=== PATIENT | male | born 1985 | race Caucasian/White ===

== ENCOUNTER → 2023-09-09 | Emergency (ER) | payer SELFPAY ==
[~2023-09-09] MED LIST: CEFTRIAXONE 1000 MG/VIAL ONE; CYCLOBENZAPRINE 10 MG TAB ONE; GUAIFENESIN/DM 5 ML UCUP ONE; KETOROLAC 30 MG/ML INJ ONE; LIDOCAINE 1% MPF 5 ML VIAL ONE; METOCLOPRAMIDE 10 MG/2mL INJ ONE; NA CHLORIDE 0.9% 1,000 ML ONE
[2023-09-09 06:25] LABS: SARS-CoV-2 Antigen Rapid Res Negative (Negative)
[2023-09-09 06:43] LABS: Absolute Lymphocytes (CBC) 1.5 K/uL (0.7-4.9); Hematocrit 43.9 % (39.6-49.0); Lymphocytes % 22.4 % (15.3-44.8); MCV 80.1 fL (80-100); MPV 7.4 fL (7.6-11.3); Platelets 280 thou/uL (152-406); RBC Red Blood Cell Count 5.48 M/uL (4.33-5.43)
[2023-09-09 06:54] LABS: Potassium 3.9 mEq/L (3.5-5.1)
--- NOTE | 2023-09-09 07:14 | EDPHYS ---
Physician Documentation [facility] Name: Woody Mejia Age: 37 yrs Sex: Male : 1985 Arrival Date: 09/09/2023 Time: 05:31 Bed 6 Private MD: ED Physician Chandan Alcantara HPI: 09/09 05:56 This 37 yrs old Male presents to ER via Ambulatory with complaints of Flu sp4 Symptoms. 07:50 Patient presents with 4 days of cough , congestion, pleuritic right lateral chest wall sp4 pain, also there is painful cough. . Historical: - Allergies: 05:50 No Known Allergies; vc1 - Home Meds: 05:50 None [Active]; vc1 - PMHx: 05:50 None; vc1 - PSHx: 05:50 None; vc1 - Immunization history:: Client reports receiving the 2nd dose of the Covid vaccine, Flu vaccine is not up to date. - Social history:: Smoking status: Patient denies any tobacco usage or history of. - Family history:: not pertinent. ROS: 07:50 Constitutional: Positive fever, cough, congestion, pleuritic right chest wall pain. sp4 07:50 All other systems are negative, Exam: 07:50 Constitutional: This is a well developed, well nourished patient who is awake, alert, sp4 and in no acute distress. Head/Face: Normocephalic, atraumatic. Eyes: Pupils equal round and reactive to light, extra-ocular motions intact. Lids and lashes normal. Conjunctiva and sclera are not injected. Cornea within normal limits. Periorbital areas with no swelling, redness, or edema. ENT: Nares patent. No nasal discharge, no septal abnormalities noted. Tympanic membranes are normal and external auditory canals are clear. Oropharynx with no redness, swelling, or masses, exudates, or evidence of obstruction, uvula midline. Mucous membranes moist. Neck: Trachea midline, no thyromegaly or masses palpated, and no cervical lymphadenopathy. Supple, full range of motion without nuchal rigidity, or vertebral point tenderness. Chest/axilla: Normal chest wall appearance and motion. Nontender with no deformity. No lesions are appreciated. Cardiovascular: Regular rate and rhythm with a normal S1 and S2. No gallops, murmurs, or rubs. Normal PMI, no JVD. No pulse deficits. Respiratory: Lungs have equal breath sounds bilaterally, clear to auscultation and percussion. No rales, rhonchi or wheezes noted. No increased work of breathing, no retractions or nasal flaring. Abdomen/GI: Soft, with normal bowel sounds. No distension or tympany. No guarding or rebound. No evidence of tenderness throughout. Back: No spinal tenderness. No costovertebral tenderness. Skin: Warm, dry with normal turgor. Normal color with no rashes, no lesions, and no evidence of cellulitis. MS/ Extremity: Pulses equal, no cyanosis. Neurovascular intact. Full, normal range of motion. Neuro: Awake and alert, GCS 15, oriented to person, place, time, and situation. Cranial nerves II-XII grossly intact. Motor strength 5/5 in all extremities. Sensory grossly intact. Psych: Awake, alert, with orientation to person, place and time. Behavior, mood, and affect are within normal limits Vital Signs: 05:47 BP 160 / 90; Pulse 95; Resp 20; Temp 97.5; Pulse Ox 96% ; Weight 131.54 kg; Height 5 vc1 ft. 8 in. ; Pain 7/10; 06:00 BP 152 / 102; Pulse 92; Resp 18; Temp 98; Pulse Ox 97% on R/A; as9 06:30 BP 134 / 91; Pulse 86; Resp 20; Pulse Ox 96% on R/A; as9 07:00 BP 136 / 103; Pulse 82; Resp 19; Temp 98; Pulse Ox 97% on R/A; as9 07:51 BP 138 / 75; Pulse 78; Resp 17 S; Pulse Ox 99% on R/A; kc6 05:47 Body Mass Index 44.09 (131.54 kg, 172.72 cm) vc1 05:47 Pain Scale: Adult vc1 MDM: 05:56 Patient medically screened. 09/09 05:56 Order name: SARS RAPID; Complete Time: 07:01 sp4 09/09 05:56 Order name: Influenza Screen (a \T\ B); Complete Time: 07:01 sp4 09/09 06:10 Order name: Basic Metabolic Panel; Complete Time: 07:01 4 09/09 06:10 Order name: CBC with Diff; Complete Time: 07:01 sp4 09/09 06:10 Order name: Chest Pa And Lat (2 Views) XRAY sp4 09/09 06:10 Order name: IV Saline Lock; Complete Time: 06:37 sp4 09/09 06:10 Order name: Labs collected and sent; Complete Time: 06:37 sp4 Administered Medications: 06:58 Drug: Cyclobenzaprine PO 10 mg PO once Route: PO; as9 06:58 Drug: NS 0.9% IV 1000 ml IV at 1 bolus Per protocol; 1000 mL bolus Route: IV; Rate: 1 as9 bolus; Site: right antecubital; 06:58 Drug: Dextromethorphan-Guaifenesin PO Liquid 10 mg-100 mg/5 mL 10 ml PO once Route: PO; as9 06:59 Drug: metoCLOPramide IVP 10 mg IVP once; over 1 to 2 minutes Route: IVP; Site: right as9 antecubital; 06:59 Drug: Ketorolac IVP 30 mg IVP once Route: IVP; Site: right antecubital; as9 07:21 Drug: Rocephin (cefTRIAXone) IM 1 grams IM once Route: IM; Site: left deltoid; kc6 Disposition Summary: 09/09/23 07:13 Discharge Ordered Problem: new sp4 Symptoms: have improved sp4 Condition: Stable sp4 Diagnosis - Acute bronchitis, unspecified sp4 - Acute pleuritic chest pain sp4 Followup: sp4 - With: Aaron Suggs DO - When: 7 - 10 days - Reason: Recheck today's complaints Discharge Instructions: - Discharge Summary Sheet sp4 - Acute Bronchitis, Adult sp4 Forms: - Patient Portal Instructions sp4 Prescriptions: - dextromethorphan-guaifenesin 60-1,200 mg Oral Tablet, Extended Release 12 hr - take 1 tablet ORAL route every 12 hours as needed for cold symptoms; 42 tablet; sp4 Refills: 0, Product Selection Permitted - Ibuprofen 800 mg Oral Tablet - take 1 tablet ORAL route every 8 hours As needed take with food; 30 tablet; sp4 Refills: 0, Product Selection Permitted - Zithromax Z-Raymundo 250 mg Oral Tablet - take 1 tablet ORAL route as directed for 5 days Day 1 - take two (2) tablets sp4 one time. Day 2, 3, 4 , 5 take one (1) tablet once daily.; 6 tablet; Refills: 0, Product Selection Permitted Signatures: Dispatcher [employer] Alda Mayberry RN RN vc1 Jessica Lares RN RN kc6 Chandan Alcantara MD MD sp4 Torres Garcia RN RN as9
--- NOTE | 2023-09-09 07:14 | ER ---
Nurse's Notes [facility] Name: Woody Mejia Age: 37 yrs Sex: Male : 1985 Arrival Date: 09/09/2023 Time: 05:31 Bed 6 Private MD: Diagnosis: Acute bronchitis, unspecified;Acute pleuritic chest pain Presentation: 09/09 05:47 Chief complaint: Patient states: I have had a cough for a few days and have been vc1 running fever off and on. It hurts when I cough or take a deep breath. My throat hurts too. Coronavirus screen: Vaccine status: Patient reports receiving the 2nd dose of the covid vaccine. Client denies travel out of the [place] in the last 14 days. congestion, cough unrelated to allergies, fever, headache, muscle pain, sore throat, Client presents with at least one sign or symptom that may indicate coronavirus-19. Ebola Screen: Patient negative for fever greater than or equal to 101.5 degrees Fahrenheit, and additional compatible Ebola Virus Disease symptoms Patient denies exposure to infectious person. Patient denies travel to an Ebola-affected area in the 21 days before illness onset. No symptoms or risks identified at this time. Initial Sepsis Screen: Does the patient meet any 2 criteria? HR > 90 bpm. No. Patient's initial sepsis screen is negative. Does the patient have a suspected source of infection? No. Patient's initial sepsis screen is negative. Risk Assessment: Do you want to hurt yourself or someone else? Patient reports no desire to harm self or others. Onset of symptoms was September 09, 2023. 05:47 Method Of Arrival: Ambulatory vc1 05:47 Acuity: JACE 3 vc1 Triage Assessment: 05:51 General: Appears in no apparent distress. uncomfortable, ill, Behavior is calm, vc1 cooperative, appropriate for age. Pain: Complains of pain in throat, "rib pain", aches and pains Pain does not radiate. Pain currently is 7 out of 10 on a pain scale. at worst was 10 out of 10 on a pain scale. Quality of pain is described as sharp, Pain began 2-3 days ago. Is continuous, Noted to be grimacing. EENT: Reports nasal congestion pain when swallowing. Neuro: Level of Consciousness is awake, alert, obeys commands, Oriented to person, place, time, situation, Appropriate for age Reports headache. Cardiovascular: Heart tones S1 S2 Capillary refill < 3 seconds Patient's skin is warm and dry. Respiratory: Airway is patent Respiratory effort is even, unlabored, Respiratory pattern is regular, symmetrical. GI: Reports nausea, vomiting, N/V yesterday. : No deficits noted. No signs and/or symptoms were reported regarding the genitourinary system. Derm: No deficits noted. No signs and/or symptoms reported regarding the dermatologic system. Musculoskeletal: No deficits noted. No signs and/or symptoms reported regarding the musculoskeletal system. 05:58 Respiratory: Breath sounds are clear bilaterally. vc1 Historical: - Allergies: 05:50 No Known Allergies; vc1 - Home Meds: 05:50 None [Active]; vc1 - PMHx: 05:50 None; vc1 - PSHx: 05:50 None; vc1 - Immunization history:: Client reports receiving the 2nd dose of the Covid vaccine, Flu vaccine is not up to date. - Social history:: Smoking status: Patient denies any tobacco usage or history of. - Family history:: not pertinent. Screenin:50 [facility] ED Fall Risk Assessment (Adult) History of falling in the last 3 months, vc1 including since admission No falls in past 3 months (0 pts) Confusion or Disorientation No (0 pts) Intoxicated or Sedated No (0 pts) Impaired Gait No (0 pts) Mobility Assist Device Used No (0 pt) Altered Elimination No (0 pt) Score/Fall Risk Level 0 - 2 = Low Risk Oriented to surroundings, Maintained a safe environment, Educated pt \\T\\ family on fall prevention, incl call for assistance when getting out of bed. Abuse screen: Denies threats or abuse. Nutritional screening: No deficits noted. Tuberculosis screening: No symptoms or risk factors identified. Assessment: 07:04 General: Appears in no apparent distress. Behavior is calm, cooperative, appropriate as9 for age. Neuro: Level of Consciousness is awake, alert, obeys commands, Oriented to person, place, time, situation, Appropriate for age. Cardiovascular: Capillary refill < 3 seconds Patient's skin is warm and dry. Respiratory: Airway is patent Respiratory effort is even, unlabored, Respiratory pattern is regular, symmetrical. GI: No signs and/or symptoms were reported involving the gastrointestinal system. : No signs and/or symptoms were reported regarding the genitourinary system. Derm: No signs and/or symptoms reported regarding the dermatologic system. Musculoskeletal: Circulation, motion, and sensation intact. Range of motion: intact in all extremities. 07:51 Reassessment: Patient appears in no apparent distress at this time. No changes from kc6 previously documented assessment. Patient and/or family updated on plan of care and expected duration. Pain level reassessed. Patient is alert, oriented x 3, equal unlabored respirations, skin warm/dry/pink. Vital Signs: 05:47 BP 160 / 90; Pulse 95; Resp 20; Temp 97.5; Pulse Ox 96% ; Weight 131.54 kg; Height 5 vc1 ft. 8 in. ; Pain 7/10; 06:00 BP 152 / 102; Pulse 92; Resp 18; Temp 98; Pulse Ox 97% on R/A; as9 06:30 BP 134 / 91; Pulse 86; Resp 20; Pulse Ox 96% on R/A; as9 07:00 BP 136 / 103; Pulse 82; Resp 19; Temp 98; Pulse Ox 97% on R/A; as9 07:51 BP 138 / 75; Pulse 78; Resp 17 S; Pulse Ox 99% on R/A; kc6 05:47 Body Mass Index 44.09 (131.54 kg, 172.72 cm) vc1 05:47 Pain Scale: Adult vc1 ED Course: 05:35 Patient arrived in ED. jj6 05:49 Triage completed. vc1 05:50 Arm band placed on right wrist. vc1 05:50 Patient has correct armband on for positive identification. Bed in low position. Call vc1 light in reach. Pulse ox on. NIBP on. 05:55 Chandan Alcantara MD is Attending Physician. sp4 06:23 Chest Pa And Lat (2 Views) XRAY In Process Unspecified. EDMS 06:37 Inserted saline lock: 20 gauge in right antecubital area, using aseptic technique. as9 07:12 Aaron Suggs DO is Referral Physician. sp4 07:51 No provider procedures requiring assistance completed. IV discontinued, intact, kc6 bleeding controlled, No redness/swelling at site. Pressure dressing applied. Administered Medications: 06:58 Drug: Cyclobenzaprine PO 10 mg PO once Route: PO; as9 06:58 Drug: NS 0.9% IV 1000 ml IV at 1 bolus Per protocol; 1000 mL bolus Route: IV; Rate: 1 as9 bolus; Site: right antecubital; 06:58 Drug: Dextromethorphan-Guaifenesin PO Liquid 10 mg-100 mg/5 mL 10 ml PO once Route: PO; as9 06:59 Drug: metoCLOPramide IVP 10 mg IVP once; over 1 to 2 minutes Route: IVP; Site: right as9 antecubital; 06:59 Drug: Ketorolac IVP 30 mg IVP once Route: IVP; Site: right antecubital; as9 07:21 Drug: Rocephin (cefTRIAXone) IM 1 grams IM once Route: IM; Site: left deltoid; kc6 Medication: 05:51 VIS not applicable for this client. vc1 Outcome: 07:13 Discharge ordered by . [email or web address] 07:52 Discharged to home ambulatory, kc6 07:52 Condition: good 07:52 Discharge instructions given to patient, Instructed on discharge instructions, follow up and referral plans. medication usage, Demonstrated understanding of instructions, follow-up care, medications, Prescriptions given X 3, 07:52 Patient left the ED. kc6 Signatures: Dispatcher [employer] EDMS Annie Topete jj6 Alda Moore RN RN vc1 Jessica Lares RN RN kc6 Chandan Alcantara MD MD sp4 Torres Garcia RN RN as9 Corrections: (The following items were deleted from the chart) 05:59 05:51 GI: No deficits noted. No signs and/or symptoms were reported involving the vc1 gastrointestinal system. vc1
[2023-09-09 08:11] VITALS: BP 138/75; TEMP 98; O2SAT 99
--- NOTE | 2023-09-09 20:07 | RAD REPORT ---
EXAM DESCRIPTION: RAD - Chest Pa And Lat (2 Views) - 09/09/2023 6:22 am CLINICAL HISTORY: CHEST PAIN COMPARISON: None TECHNIQUE: PA and lateral views of the chest. FINDINGS: Lung volumes adequate. Cardiac silhouette is normal in size. No pneumothorax. No large pleural effusion. No focal consolidation. No acute bony finding. IMPRESSION: No evidence of acute cardiopulmonary disease. Electronically signed by: Amanda Lorenz MD 09/09/2023 07:14 AM SIMPLEX OPERATOR Due to temporary technical issues with the PACS/Fluency reporting system, reports are being signed by the in house radiologists without review as a courtesy to insure prompt reporting. The interpreting radiologist is fully responsible for the content of the report.
== END ==
LOC: ER 05:31
DX: J20.9 Acute bronchitis, unspecified (principal); R07.1 Chest pain on breathing; Z11.52 Encounter for screening for COVID-19
CPT/HCPCS: 36415; 71046; 80048; 85025; 87804; 87811; 96372; 96374; 96375; 99284; J0696; J2001; J2765; J7030

== ENCOUNTER 2024-03-29 07:28 | Emergency (ER) | payer SELFPAY ==
[2024-03-29] MEDS ORDERED: IBUPROFEN 200 MG TAB PO ONE (07:57)
--- NOTE | 2024-03-29 08:36 | RAD REPORT ---
EXAM DESCRIPTION: RAD - Knee Left 3 View - 03/29/2024 8:29 am CLINICAL HISTORY: PAIN COMPARISON: No comparisons FINDINGS: Mild to moderate tricompartmental osteoarthritic changes are present. No acute fracture or dislocation. No significant joint fluid. Small metallic clip is present lateral femoral metaphysis l ikely related to previous surgery. IMPRESSION: Somewhat advanced for age tricompartmental osteoarthritis. No acute findings seen.
--- NOTE | 2024-03-29 09:22 | ER ---
Nurse's Notes [facility] Name: Woody Mejia Age: 38 yrs Sex: Male : 1985 Arrival Date: 03/29/2024 Time: 07:28 Bed 8 Private MD: Diagnosis: Pain in left knee;Unilateral primary osteoarthritis, left knee Presentation: 03/29 07:44 Chief complaint: Patient states: L knee pain for 1 week. Slipped slightly down a wet ll1 embankment. Coronavirus screen: Client denies travel out of the [place] in the last 14 days. At this time, the client does not indicate any symptoms associated with coronavirus-19. Ebola Screen: Patient denies travel to an Ebola-affected area in the 21 days before illness onset. Initial Sepsis Screen: Does the patient meet any 2 criteria? No. Patient's initial sepsis screen is negative. Does the patient have a suspected source of infection? No. Patient's initial sepsis screen is negative. Risk Assessment: Do you want to hurt yourself or someone else? Patient reports no desire to harm self or others. Onset of symptoms was March 22, 2024. 07:44 Method Of Arrival: Ambulatory ll1 07:44 Acuity: JACE 4 ll1 Historical: - Allergies: 07:43 No Known Allergies; ll1 - Home Meds: 07:43 None [Active]; ll1 - PMHx: 07:43 None; ll1 - PSHx: 07:43 knee; ll1 - Immunization history:: Adult Immunizations up to date. - Infectious Disease History:: Denies. - Social history:: Smoking status: Patient denies any tobacco usage or history of. Screenin:08 [facility] ED Fall Risk Assessment (Adult) History of falling in the last 3 months, dd2 including since admission Yes- single mechanical fall (1 pt) Confusion or Disorientation No (0 pts) Intoxicated or Sedated No (0 pts) Impaired Gait No (0 pts) Mobility Assist Device Used No (0 pt) Altered Elimination No (0 pt) Score/Fall Risk Level 0 - 2 = Low Risk Oriented to surroundings, Maintained a safe environment, Educated pt \T\ family on fall prevention, incl call for assistance when getting out of bed, Hourly rounding (assess needs \T\ fall precautionary measures) done. Abuse screen: Denies threats or abuse. Nutritional screening: No deficits noted. Tuberculosis screening: No symptoms or risk factors identified. Assessment: 08:08 General: Appears uncomfortable, Behavior is calm, cooperative, appropriate for age. dd2 Pain: Complains of pain in left knee Pain currently is 8 out of 10 on a pain scale. Neuro: Level of Consciousness is awake, alert, obeys commands, Oriented to person, place, time, situation, Appropriate for age. Cardiovascular: No deficits noted. Denies chest pain, Patient's skin is warm and dry. Respiratory: No deficits noted. Airway is patent. GI: No deficits noted. No signs and/or symptoms were reported involving the gastrointestinal system. Abdomen is non-distended. : No deficits noted. No signs and/or symptoms were reported regarding the genitourinary system. EENT: No deficits noted. No signs and/or symptoms were reported regarding the EENT system. Derm: No deficits noted. No signs and/or symptoms reported regarding the dermatologic system. Musculoskeletal: Tenderness present in Lt Knee Reports pain in Lt knee. Vital Signs: 07:44 BP 146 / 87; Pulse 79; Resp 16; Temp 97.5; Pulse Ox 98% ; Weight 120.2 kg; Height 5 ft. ll1 8 in. ; Pain 6/10; 09:31 BP 133 / 83; Pulse 84; Resp 16; Pulse Ox 98% ; dd2 07:44 Body Mass Index 40.29 (120.20 kg, 172.72 cm) ll1 07:44 Pain Scale: Adult ll1 ED Course: 07:30 Patient arrived in ED. im 07:35 Juve Crisostomo DO is Attending Physician. ms3 07:38 DAMEON REDMOND, RN is Primary Nurse. dd2 07:43 Arm band placed on Patient placed in an exam room, on a stretcher. ll1 07:46 Triage completed. ll1 08:08 Patient has correct armband on for positive identification. Bed in low position. Call dd2 light in reach. Side rails up X 1. Provided Education on: Call light, procedures, medications. Client placed on continuous cardiac and pulse oximetry monitoring. NIBP monitoring applied. Door closed. 08:08 No provider procedures requiring assistance completed. Patient did not have IV access dd2 during this emergency room visit. 08:31 Knee Left 3 View XRAY In Process Unspecified. EDMS 09:20 Shahbaz Gerard MD is Referral Physician. ms3 Administered Medications: 08:04 Drug: Ibuprofen PO 600 mg PO once Route: PO; dd2 08:34 Follow up: Response: No adverse reaction dd2 Medication: 08:08 VIS not applicable for this client. dd2 Outcome: 09:21 Discharge ordered by . ms3 09:31 Discharged to home ambulatory, dd2 09:31 Condition: stable 09:31 Discharge instructions given to patient, Instructed on discharge instructions, follow up and referral plans. medication usage, Demonstrated understanding of instructions, follow-up care, medications, Prescriptions given X 1, 09:32 Patient left the ED. dd2 Signatures: Dispatcher [employer] EDMS Heidi Nicole, RN RN ll1 Juve Crisostomo DO DO ms3 Jenn Bermeo DIANA, RN RN dd2
--- NOTE | 2024-03-29 09:22 | EDPHYS ---
Physician Documentation [facility] Name: Woody Mejia Age: 38 yrs Sex: Male : 1985 Arrival Date: 03/29/2024 Time: 07:28 Bed 8 Private MD: ED Physician Juve Crisostomo HPI: 03/29 09:32 This 38 yrs old Male presents to ER via Ambulatory with complaints of Knee Pain. ms3 09:32 38-year-old male with no past medical history presents to the emergency department for ms3 left knee pain that began last . Patient states he was at work when he slipped and twisted his left knee. Patient states symptoms improved and he went to work yesterday and his knee became swollen and painful. Patient states the pain is worse with movement. He states the pain is a 6/10. Patient last took ibuprofen last night. Historical: - Allergies: 07:43 No Known Allergies; ll1 - Home Meds: 07:43 None [Active]; ll1 - PMHx: 07:43 None; ll1 - PSHx: 07:43 knee; ll1 - Immunization history:: Adult Immunizations up to date. - Infectious Disease History:: Denies. - Social history:: Smoking status: Patient denies any tobacco usage or history of. ROS: 09:32 Constitutional: Negative for fever, and chills. Cardiovascular: Negative for chest ms3 pain, and palpitations. Respiratory: Negative for shortness of breath, cough, wheezing, and pleuritic chest pain, Abdomen/GI: Negative for abdominal pain, nausea, vomiting, diarrhea, and constipation, 09:32 Skin: Negative for injury, rash, and discoloration, 09:32 MS/extremity: Positive for pain, of the left knee, Exam: 09:32 Constitutional: This is a well developed, well nourished patient who is awake, alert, ms3 and in no acute distress. Chest/axilla: Normal chest wall appearance and motion. Nontender with no deformity. Cardiovascular: Regular rate and rhythm with a normal S1 and S2. No gallops, murmurs, or rubs. Normal PMI, no JVD. No pulse deficits. Respiratory: Lungs have equal breath sounds bilaterally, clear to auscultation and percussion. No rales, rhonchi or wheezes noted. No increased work of breathing, no retractions or nasal flaring. Abdomen/GI: Soft, non-tender, with normal bowel sounds. No distension or tympany. No guarding or rebound. No evidence of tenderness throughout. Skin: Warm, dry with normal turgor. Normal color with no rashes, no lesions, and no evidence of cellulitis. 09:32 Musculoskeletal/extremity: Extremities: noted in the left knee: pain, tenderness, There is no evidence of erythema, Vital Signs: 07:44 BP 146 / 87; Pulse 79; Resp 16; Temp 97.5; Pulse Ox 98% ; Weight 120.2 kg; Height 5 ft. ll1 8 in. ; Pain 6/10; 09:31 BP 133 / 83; Pulse 84; Resp 16; Pulse Ox 98% ; dd2 07:44 Body Mass Index 40.29 (120.20 kg, 172.72 cm) ll1 07:44 Pain Scale: Adult ll1 MDM: 07:48 Patient medically screened. ms3 09:32 Differential diagnosis: closed fracture, contusion, tendonitis. ms3 09:33 Data reviewed: vital signs, nurses notes, radiologic studies, and as a result, I will ms3 discharge patient. I considered the following discharge prescriptions or medication management in the emergency department Medications were administered in the Emergency Department. See MAR. Independent interpretation of the following test(s) in the Emergency Department X-Ray: My interpretation is Left knee x-ray images reviewed do not reveal fracture. Counseling: I had a detailed discussion with the patient and/or guardian regarding the historical points, exam findings, and any diagnostic results supporting the discharge/admit diagnosis, radiology results, the need for outpatient follow up, to return to the emergency department if symptoms worsen or persist or if there are any questions or concerns that arise at home. Special discussion: I discussed with the patient/guardian in detail that at this point there is no indication for admission to the hospital. It is understood, however, that if the symptoms persist or worsen the patient needs to return immediately for re-evaluation. ED course: Discussed x-ray findings with patient. Patient to follow-up with Dr. Downey in 2 to 3 days. Patient understands and agrees with plan. All questions were answered. Return precautions discussed include worsening symptoms, or any other concerns. On reevaluation left knee is without erythema, warmth. No signs of compartment syndrome at present. 03/29 07:49 Order name: Knee Left 3 View XRAY; Complete Time: 08:47 ms3 Administered Medications: 08:04 Drug: Ibuprofen PO 600 mg PO once Route: PO; dd2 08:34 Follow up: Response: No adverse reaction dd2 Disposition Summary: 03/29/24 09:21 Discharge Ordered Notes: Location: Home ms3 Condition: Stable ms3 Diagnosis - Pain in left knee ms3 - Unilateral primary osteoarthritis, left knee ms3 Followup: ms3 - With: Shahbaz Downey MD - When: 2 - 3 days - Reason: Recheck today's complaints Discharge Instructions: - Acute Knee Pain, Adult ms3 - Discharge Summary Sheet ko1 Forms: - Medication Reconciliation Form ms3 - Antibiotic Education ms3 - Prescription Opioid Use ms3 - Patient Portal Instructions ms3 - Leadership Thank You Letter ms3 - Work release form ko1 Prescriptions: - Ibuprofen 600 mg Oral Tablet - take 1 tablet ORAL route every 6 hours As needed take with food; 30 tablet; ms3 Refills: 0, Product Selection Permitted Signatures: Dispatcher [employer] EDMS Heidi Nicole, RN RN ll1 Juve Crisostomo DO DO ms3 DAMEON REDMOND RN RN dd2 Corrections: (The following items were deleted from the chart) 07:49 07:49 Knee Left 3 View+RAD.RAD.[email or web address] ordered. EDMS EDMS
[2024-03-29 09:37] VITALS: TEMP 97.5; O2SAT 98
[2024-03-29 09:39] VITALS: BP 133/83
== END 2024-03-29 09:32 | disposition home or self-care (01) ==
LOC: ER 07:28
DX: M17.12 Unilateral primary osteoarthritis, left knee (principal)
CPT/HCPCS: 99283